=== PATIENT | male | born 1955 | race Hispanic/Latino ===

== ENCOUNTER → 2016-12-05 | Outpatient (CLI) | payer SELFPAY | END | disposition home or self-care (01) | LOC: YCFC.O 16:24 | PROVIDERS: ATTEND Nurse Practitioner Family | DX: R06.00 Dyspnea, unspecified (principal) ==

== ENCOUNTER → 2016-12-05 | Outpatient (CLI) | payer SELFPAY ==
--- NOTE | 2016-12-09 09:22 | RAD ---
Procedure: XR CHEST 2 VIEWS Exam date: 12/05/2016 12:00 AM CDT Ordering Provider: Ruthie Melendez Clinical Indication: DYSPNEA. R06.00 Comparison: None Findings: Cardiomediastinal silhouette is within normal limits. The lungs are clear. No pleural effusion or pneumothorax. Osseous structures are nonacute. Thoracic spondylosis. No evidence of active tuberculosis. Impression: No acute cardiopulmonary process. Electronically signed by: Janak Malone MD 12/09/2016 9:22 AM CDT
== END ==
LOC: RAD 16:18
PROVIDERS: ATTEND Nurse Practitioner Family
DX: R06.00 Dyspnea, unspecified (principal)